=== PATIENT | male | born 1970 | race Caucasian/White ===

== ENCOUNTER 2017-06-13 17:55 | Emergency (ER) | payer MEDICAID ==
[~2017-06-13] VITALS: Ht 152.4 cm; Wt 96.6 kg
[2017-06-13 17:58] VITALS: BP 154/83
== END 2017-06-13 22:34 | disposition home or self-care (01) ==
LOC: ED 17:55
DX: B34.9 Viral infection, unspecified (principal); I10 Essential (primary) hypertension

== ENCOUNTER 2020-05-08 14:48 | Emergency (ER) | payer MEDICAID ==
[~2020-05-08] VITALS: Ht 162.6 cm; Wt 88.5 kg
[~2020-05-08 14:48] MED LIST: AZITHROMYCIN500 M3
[2020-05-08 14:55] VITALS: Ht 162.6 cm; Wt 88.5 kg
[2020-05-08 19:41] VITALS: BP 136/92
== END 2020-05-08 19:41 | disposition home or self-care (01) ==
LOC: ED 14:48
DX: U07.1 COVID-19 (principal); J12.82 Pneumonia due to coronavirus disease 2019